=== PATIENT | female | born 1980 | race Caucasian/White ===

== ENCOUNTER 2017-04-28 23:09 | Emergency (ER) | payer OTHER ==
[~2017-04-28] VITALS: Ht 174 cm; Wt 95.2 kg
[2017-04-28] MEDS: KETOROLAC TROMETHAMINE 60 MG/2 ML VIAL IM STA (00:15)
[2017-04-28 23:11] VITALS: TEMP 36.5; Ht 174 cm; Wt 95.2 kg
[2017-04-29 00:23] VITALS: BP 127/72; PULSE 86; O2SAT 98
--- NOTE | 2017-04-29 06:35 | EMERGENCY ROOM VISIT NOTE ---
History First contact with patient: 23:36 Chief Complaint: HEADACHE Stated Complaint: TENSION HEADACHE History of Present Illness The patient is a 36 year old female who presents to the Emergency Room with complaints of right-sided headache symptoms that have been worsening over the past several hours. The patient evidently has an extensive long-standing history of similar migraines and headaches. This is identical to previous episodes. She was following with a pain management clinic in [place] up until last month when her provider retired and the office closed. The patient states that she is visiting this area to be with her mother after the patient's father one month ago, and is ultimately moving into this area. She does not have pain management set up locally, but reports an upcoming appointment in the middle of April to establish care. She does not have medication to make it to that appointment. She rates her overall discomfort a 9/10. Review of Systems More than 10 systems were reviewed and otherwise negative with the exception of history of present illness. Past Medical/Surgical History History of migraines Family History No pertinent family history Social History Smoking Status: Current Every Day Smoker Housing Status: lives with family Physical Exam Vital Signs Date Time Temp Pulse Resp B/P (MAP) Pulse Ox O2 Delivery O2 Flow Rate FiO2 04/29/17 00:23 86 18 127/72 98 04/28/17 23:11 36.5 81 18 140/88 100 Room Air Physical Exam VITALS: Vitals are noted on the nurse's note and reviewed by myself. Vital signs stable. GENERAL: Well-developed, well-nourished, white female, who is in no acute distress and resting comfortably. Patient is cooperative with the examination. NECK: Supple without nuchal rigidity. No lymphadenopathy. No thyromegaly. Cervical spine is nontender. HEART: Regular rate and rhythm without murmurs gallops or rubs. LUNGS: Clear to auscultation bilaterally without wheezes, rales or rhonchi. No retractions or accessory muscle use. MUSCULOSKELETAL: No muscle atrophy, erythema, or edema noted. Full range of motion without joint tenderness in all extremities. NEURO: Patient was alert and oriented to person place and time. CN II through XII grossly intact. No focal neurological deficits. Deep tendon reflexes 2+ throughout. Medical Decision & Procedures Medications Administered Medications (Trade) Dose Ordered Sig/Polly Route Start Time Stop Time Status Last Admin Dose Admin Ketorolac Tromethamine (Toradol Inj) 60 mg NOW STAT IM 04/28/17 23:56 04/28/17 23:57 DC 04/28/17 00:15 60 MG ED Course Physical exam and history were performed. Nursing notes, EMR, and Medication List were personally reviewed. Patient appears to have headache symptoms for the past several hours. Review of the PDMP reveals the patient has received ongoing prescriptions for 10 mg oxycodone tablets, 6 times daily, for the past year. The patient does not appear in withdrawal at this time, and her last prescription was filled about 2 weeks ago. I had a very lengthy discussion regarding options of care with the patient. The patient certainly does not appear with signs of meningitis or encephalitis. Her previous history includes MRIs, CT scans, and multiple neurologic evaluations. She does not wish for additional imaging today, and this seems reasonable. Her primary complaint is pain, and I did offer Toradol, Benadryl, and Compazine. The patient does not have a ride, and expects to be able to drive herself home. Because of this we elected to use 60 mg IM Toradol for treatment. The patient understands that the emergency department is not able to treat chronic pain. I am not able to refill her medications, and she needs to follow with her primary care physician or reestablish with one locally. The patient has resources to do this, but has not yet occurred. The patient understands that we do not provide narcotics for migraine headaches. Overall the patient appears well for discharge home and was given instructions as below. She was otherwise invited back to the ER with any new, worsening, or concerning symptoms. The chart was completed utilizing [employer] Voice Recognition Software. Grammatical errors, random word insertions, pronoun errors, and incomplete sentences are an occasional consequence of this system due to software limitations, ambient noise, and hardware issues. Any formal questions or concerns about the content, text, or information contained within the body of this dictation should be directly addressed to the provider for clarification. . Medical Decision The differential diagnosis includes, but is not limited to: acute intracranial bleed, meningitis, encephalitis, mass or mass effect, sinusitis, infection, tumor, headache, temporal arteritis and carbon monoxide exposure, and migraine. Impression Primary Impression: Tension headache Departure Information Dispostion Home / Self-Care Condition GOOD Referrals No Doctor, Assigned (PCP) Forms HOME CARE DOCUMENTATION FORM, IMPORTANT VISIT INFORMATION Patient Instructions My [facility] Additional Instructions You were seen and evaluated today on an emergency basis only. This is not a substitute for, or an effort to provide, complete comprehensive medical care. It is not possible to recognize and treat all injuries or illnesses in a single emergency department visit. For this reason it is recommended that you followup with your primary care physician or neurologist this week for ongoing care and evaluation. Rest today in a quiet, peaceful, dark environment and get a full 8-10 hrs of sleep tonight. Avoid loud noises, smoke/smoking, alcohol, bright lights, stress, or physical exertion today to minimize the chance the headache may return. Continue current medications. Ibuprofen(Motrin, Advil) may be used for fever or pain. Use 600mg every six hours as needed. Take with food. Avoid using more than 2400mg in a 24 hour period. Do not use 2400mg per day for more than three consecutive days without physician direction. Prolonged inappropriate use can lead to stomach upset or ulcers. (AND/OR) Acetaminophen(Tylenol) may be used for fever or pain. Use 1000mg every six hours as needed. Avoid using more than 4000mg in a 24 hour period. Return to the ER for passing out, worsening headache, vision problems, neck stiffness/pain, fevers, vomiting, worsening of your condition, or as needed.
== END 2017-04-29 00:18 | disposition home or self-care (01) ==
LOC: C.EDB 23:10 → C.EDA 04-29 00:18
DX: G44.209 Tension-type headache, unspecified, not intractable (principal); F17.200 Nicotine dependence, unspecified, uncomplicated